=== PATIENT | male | born 1965 | race Hispanic/Latino ===

== ENCOUNTER 2020-07-09 23:24 | Observation (INO) | payer MEDICARE ==
[2020-07-09] MEDS ORDERED: SODIUM CHLORIDE 0.9% 1000 ML 1,000 ML IV ONE (23:49)
--- NOTE | 2020-07-09 23:50 | Emergency Department Report ---
ED General Adult HPI - General Chief complaint: GI Bleed Stated complaint: GI BLEED PUI?: No Time Seen by Provider: 07/09/20 23:48 Source: patient, EMS ( EMS documentation not available at time of chart dictation ), RN notes reviewed, old records reviewed Mode of arrival: Stretcher Limitations: Other (The patient is a poor historian) - History of Present Illness Initial comments: The patient was evaluated in the emergency department for symptoms described in the history of present illness. He/she was evaluated in the context of the global COVID-19 pandemic, which necessitated consideration that the patient might be at risk for infection with the virus that causes COVID-19. Institutional protocols and algorithms that pertain to the evaluation of patients at risk for COVID-19 are in a state of rapid change based on inf ormation released by regulatory bodies including the CDC and federal and state organizations. These policies and algorithms were followed during the patient's care in the emergency department. Please note that these policies, procedures and recommendations changed on a rapid basis. Patient is a 55-year-old gentleman. The patient does not know who his primary care doctor is the patient does not know who his sisal picker is. He has a history of hypertension and heart disease. He does not know if he takes systemic anticoagulation. He believes he takes aspirin. He is not sure when he last took aspirin. He is not sure if he takes Plavix. He does not have anyone who can give him the name of his medications. He does not recall what pharmacy he gets his medications from. He presents to the ER with a complaint of nontraumatic dark red/bright red blood per rectum x1 day. He reports 7 bloody bowel movements. He also endorses epigastric abdominal pain nonradiating for 1 week. He denies headache, neck pain, chest pain, shortness of breath, hematemesis, urinary symptoms, homicidality, suicidality, extremity weakness/numbness. He is amenable to packed red blood cell transfusion if he requires it. He is not sure if he is had a colonoscopy in the past. He is not accompanied by family, friends at this time who can provide additional information or collateral information. -: Sudden, hour(s), days(s) Location: abdomen Consistency: constant Improves with: other Worsens with: other - Related Data Home Medications Medication Instructions Recorded Confirmed Last Taken buPROPion [Wellbutrin] 150 mg PO BID 09/11/13 09/06/16 11/16/13 lamoTRIgine [LaMICtal] 500 mg PO BID 09/11/13 09/06/16 11/16/13 ALPRAZolam [Alprazolam] 2 mg PO PRN PRN 11/17/13 09/06/16 11/16/13 Aspirin 81 mg PO QDAY 11/17/13 09/06/16 11/16/13 Lisinopril 10 mg PO QDAY 11/17/13 09/06/16 11/17/13 05:00 Meloxicam 7.5 mg PO QDAY 11/17/13 09/06/16 11/17/13 05:00 Metoprolol [Lopressor TAB] 50 mg PO BID 11/17/13 09/06/16 11/17/13 05:00 Nitroglycerin [Nitrostat] 0.4 mg SL Q5M PRN 11/17/13 09/06/16 Unknown Previous Rx's Medication Instructions Recorded Last Taken Type Ibuprofen [Motrin 800 MG tab] 800 mg PO TID PRN #30 tablet 09/11/13 11/16/13 Rx Oxycodone HCl [OxyCONTIN] 10 mg PO BID PRN #20 tab.er.12h 09/11/13 11/15/13 Rx Allergies Allergy/AdvReac Type Severity Reaction Status Date / Time acetaminophen [From Tylenol] Allergy Swelling Verified 10/18/13 11:08 Latex, Natural Rubber Allergy Hives Verified 09/06/16 18:51 Sulfa (Sulfonamide Allergy Swelling Verified 10/18/13 11:08 Antibiotics) ED Review of Systems ROS: Stated complaint: GI BLEED Other details as noted in HPI Constitutional: malaise. denies: fever Eyes: denies: eye discharge ENT: denies: epistaxis Respiratory: denies: cough Cardiovascular: denies: chest pain Gastrointestinal: abdominal pain, hematochezia Genitourinary: denies: dysuria Musculoskeletal: as per HPI Skin: as per HPI Neurological: as per HPI Psychiatric: as per HPI Hematological/Lymphatic: as per HPI ED Past Medical Hx - Past Medical History Previous Medical History?: Yes Hx Hypertension: Yes Hx Heart Attack/AMI: Yes Hx Diabetes: Yes (diet controlled) Hx Liver Disease: Yes Hx Arthritis: Yes Hx Kidney Stones: Yes Hx Psychiatric Treatment: Yes Hx Asthma: Yes Additional medical history: He says he had an appointment with the cancer doctor but did not go for evaluation of whether he had liver cancer. - Surgical History Past Surgical History?: Yes Additional Surgical History: back surgery and hand surgery to clean staph out - Social History Smoking Status: Current Every Day Smoker Substance Use Type: None - Medications Home Medications: Home Medications Medication Instructions Recorded Confirmed Last Taken Type Ibuprofen [Motrin 800 MG tab] 800 mg PO TID PRN #30 tablet 09/11/13 09/06/16 11/16/13 Rx Oxycodone HCl [OxyCONTIN] 10 mg PO BID PRN #20 tab.er.12h 09/11/13 09/06/16 11/15/13 Rx buPROPion [Wellbutrin] 150 mg PO BID 09/11/13 09/06/16 11/16/13 History lamoTRIgine [LaMICtal] 500 mg PO BID 09/11/13 09/06/16 11/16/13 History ALPRAZolam [Alprazolam] 2 mg PO PRN PRN 11/17/13 09/06/16 11/16/13 History Aspirin 81 mg PO QDAY 11/17/13 09/06/16 11/16/13 History Lisinopril 10 mg PO QDAY 11/17/13 09/06/16 11/17/13 05:00 History Meloxicam 7.5 mg PO QDAY 11/17/13 09/06/16 11/17/13 05:00 History Metoprolol [Lopressor TAB] 50 mg PO BID 11/17/13 09/06/16 11/17/13 05:00 History Nitroglycerin [Nitrostat] 0.4 mg SL Q5M PRN 11/17/13 09/06/16 Unknown History ED Physical Exam - General Limitations: No Limitations General appearance: alert, anxious - Head Head exam: Present: atraumatic, normocephalic - Eye Eye exam: Present: normal appearance, EOMI, other (Bilateral conjunctiva are pale). Absent: nystagmus - ENT ENT exam: Present: normal exam, normal orophraynx, mucous membranes moist, normal external ear exam - Neck Neck exam: Present: normal inspection, full ROM. Absent: tenderness, meningismus - Respiratory Respiratory exam: Present: normal lung sounds bilaterally. Absent: respiratory distress, wheezes, rales, rhonchi, stridor, decreased breath sounds - Cardiovascular Cardiovascular Exam: Present: regular rate, normal rhythm, normal heart sounds. Absent: bradycardia, tachycardia, irregular rhythm, systolic murmur, diastolic murmur, rubs, gallop - GI/Abdominal GI/Abdominal exam: Present: soft, tenderness (There is epigastric tenderness). Absent: distended, guarding, rebound, rigid, pulsatile mass - Rectal Rectal exam: Present: normal inspection, bloody stool, other (Gross blood on rectal exam. Chaperoned by Career Advisor Eunice) - Extremities Exam Extremities exam: Present: normal inspection, full ROM, other (2+ pulses noted in the bilateral upper and lower extremities. There is no palpable cord. negative Homans sign. Muscular compartments are soft. The pelvis is stable.). Absent: pedal edema, calf tenderness - Back Exam Back exam: Present: normal inspection, full ROM. Absent: tenderness, CVA tenderness (R), CVA tenderness (L), paraspinal tenderness, vertebral tenderness - Neurological Exam Neurological exam: Present: alert, other (No facial droop. Tongue midline. Extraocular movements intact bilaterally. Facial sensation intact to light touch in V1, V2, V3 distribution bilaterally. 5 and a 5 strength in 4 extremities. Sensation intact to light touch in 4 extremities.) - Psychiatric Psychiatric exam: Present: anxious - Skin Skin exam: Present: warm, dry, intact, normal color. Absent: rash ED Course Vital Signs 07/09/20 07/10/20 07/10/20 23:50 00:00 00:30 Temperature 97.6 F Pulse Rate 94 H 98 H Respiratory 14 11 L 13 Rate Blood Pressure 109/86 108/81 Blood Pressure 95/74 [Left] O2 Sat by Pulse 98 100 100 Oximetry 07/10/20 07/10/20 00:45 00:56 Temperature Pulse Rate 82 Respiratory 12 18 Rate Blood Pressure 125/79 Blood Pressure [Left] O2 Sat by Pulse 100 Oximetry - Reevaluation(s) Reevaluation #1: 07/10/20 00:15 Differential diagnosis, including but not limited to: Diverticular bleed, angiodysplasia, upper GI bleed Assessment and plan: 55-year-old gentleman, who endorses bright red blood per rectum and mild abdominal tenderness. Blood pressure in the high 90s/low 100s. Establish to large-bore IV access, start IV fluids wide open, obtain appropriate laboratory studies, EKG, place patient on patient monitor, obtain CT angiogram of the abdomen pelvis, and reassess. We will discuss with gastroenterology once his initial data points have resulted. We have discussed this plan of care with the patient, who verbalized understanding, and who is amenable to this plan of care. Patient states he is amenable to packed red blood cell transfusion. Reevaluation #2: 07/10/20 03:00 Blood pressure improved. Patient still having mild abdominal pain. CT angiogram negative for active bleed. Duodenitis is suggested. He is asking for additional pain medication, but otherwise appears comfortable. Patient will be admitted to the medical service. Reevaluation #3: 07/10/20 03:06 Dr Davon Xiao to admit - Consultations Consultation #1: 07/10/20 00:32 Discussed history, physical, and plan of care with gastroenterology on-call, Dr. Farzaneh Morley, who is in agreement with plan, indicates his group can follow in consultation ED Medical Decision Making - Lab Data Result diagrams: 07/09/20 23:48 07/10/20 Unknown Lab Results 07/09/20 Range/Units 23:48 WBC 12.6 H (4.5-11.0) K/mm3 RBC 4.36 (3.65-5.03) M/mm3 Hgb 12.9 (11.8-15.2) gm/dl Hct 39.1 (35.5-45.6) % MCV 90 (84-94) fl MCH 30 (28-32) pg MCHC 33 (32-34) % RDW 14.1 (13.2-15.2) % Plt Count 262 (140-440) K/mm3 Lymph % (Auto) 26.8 (13.4-35.0) % Waller % (Auto) 5.8 (0.0-7.3) % Eos % (Auto) 3.4 (0.0-4.3) % Baso % (Auto) 0.5 (0.0-1.8) % Lymph # (Auto) 3.4 (1.2-5.4) K/mm3 Waller # (Auto) 0.7 (0.0-0.8) K/mm3 Eos # (Auto) 0.4 (0.0-0.4) K/mm3 Baso # (Auto) 0.1 (0.0-0.1) K/mm3 Seg Neutrophils % 63.5 (40.0-70.0) % Seg Neutrophils # 8.0 H (1.8-7.7) K/mm3 Vital Signs 07/09/20 07/10/20 07/10/20 23:50 00:00 00:30 Temperature 97.6 F Pulse Rate 94 H 98 H Respiratory 14 11 L 13 Rate Blood Pressure 109/86 108/81 Blood Pressure 95/74 [Left] O2 Sat by Pulse 98 100 100 Oximetry 07/10/20 07/10/20 00:45 00:56 Temperature Pulse Rate 82 Respiratory 12 18 Rate Blood Pressure 125/79 Blood Pressure [Left] O2 Sat by Pulse 100 Oximetry Lab Results 07/09/20 07/09/20 Range/Units 23:48 23:58 WBC 12.6 H (4.5-11.0) K/mm3 RBC 4.36 (3.65-5.03) M/mm3 Hgb 12.9 (11.8-15.2) gm/dl Hct 39.1 (35.5-45.6) % MCV 90 (84-94) fl MCH 30 (28-32) pg MCHC 33 (32-34) % RDW 14.1 (13.2-15.2) % Plt Count 262 (140-440) K/mm3 Lymph % (Auto) 26.8 (13.4-35.0) % Waller % (Auto) 5.8 (0.0-7.3) % Eos % (Auto) 3.4 (0.0-4.3) % Baso % (Auto) 0.5 (0.0-1.8) % Lymph # (Auto) 3.4 (1.2-5.4) K/mm3 Waller # (Auto) 0.7 (0.0-0.8) K/mm3 Eos # (Auto) 0.4 (0.0-0.4) K/mm3 Baso # (Auto) 0.1 (0.0-0.1) K/mm3 Seg Neutrophils % 63.5 (40.0-70.0) % Seg Neutrophils # 8.0 H (1.8-7.7) K/mm3 PT 13.5 (12.2-14.9) Sec. INR 1.02 (0.87-1.13) APTT 26.8 (24.2-36.6) Sec. - EKG Data -: EKG Interpreted by Me EKG shows normal: sinus rhythm, axis, intervals, QRS complexes, ST-T waves - EKG Data Interpretation: normal EKG - Radiology Data Radiology results: pending, report reviewed, image reviewed CTA ABDOMEN AND PELVIS WITHOUT AND WITH IV CONTRAST INDICATION / CLINICAL INFORMATION: Pt complains of epigastric abd pain, question possible GI bleed. TECHNIQUE: Axial CT images were obtained through the abdomen and pelvis before and after after injection of 100 mL Omnipaque 350 IV contrast. 3 plane MIP / 3D reconstructions were produced. All CT scans at this location are performed using CT dose reduction for ALARA by means of automated exposure control. Any percent stenosis measurements are based on criteria similar to NASCET. COMPARISON: None available. FINDINGS: Aorta: There is mild atherosclerotic plaque without stenosis or aneurysm. Renal arteries: No significant abnormality. Celiac artery: No significant abnormality. Superior Mesenteric Artery: No significant abnormality. Inferior mesenteric artery: No significant abnormality. Right I liac Arteries: No significant abnormality.. Left Iliac Arteries: No significant abnormality.. Additional Findings: There is fat stranding adjacent to the first and second parts of the duodenum likely reflecting duodenitis. There is no obstruction, pneumatosis, or free air. There are multiple gallstones in the gallbladder. There are multiple simple bilateral renal cysts. Skeletal Structures: No aggressive appearing bone lesions. Moderate degenerative disc disease at L4-5 and L5-S1 in the lumbar spine. IMPRESSION: 1. Inflammatory change adjacent to the first and second parts of the duodenum likely indicating duodenitis. No obstruction or free air. 2. No evidence of GI bleeding. No focal significant vascular abnormality beyond mild atherosclerotic plaque. Signer Name: Rafi Chisholm MD Signed: 07/10/2020 1:15 AM Workstation Name: [id number] Critical care attestation.: If time is entered above; I have spent that time in minutes in the direct care of this critically ill patient, excluding procedure time. ED Disposition Clinical Impression: Epigastric abdominal pain GI bleed Qualifiers: GI bleed type/associated pathology: unspecified gastrointestinal hemorrhage typ e Qualified Code(s): K92.2 - Gastrointestinal hemorrhage, unspecified Disposition: DC-09 OP ADMIT IP TO THIS HOSP Is pt being admited?: Yes Does the pt Need Aspirin: No Condition: Serious Referrals: JOSÉ BERKOWITZ MD [Primary Care Provider] - 3-5 Days Forms: Accompanied Note
[2020-07-10] MEDS ORDERED: fentaNYL 100 MCG/2 ML INJ IV ONE (00:10)
[2020-07-10] MEDS ORDERED: SODIUM CHLORIDE 0.9% 1000 ML 1,000 ML IV ONE (00:15)
[2020-07-10 00:38] LABS: Basophils # (Auto) 0.1 K/mm3 (0.0-0.1); Basophils % (Auto) 0.5 % (0.0-1.8); Eosinophils # (Auto) 0.4 K/mm3 (0.0-0.4); Eosinophils % (Auto) 3.4 % (0.0-4.3); Hematocrit 39.1 % (35.5-45.6); Hemoglobin 12.9 gm/dl (11.8-15.2); Lymphocytes # (Auto) 3.4 K/mm3 (1.2-5.4); Lymphocytes % (Auto) 26.8 % (13.4-35.0); Mean Corpuscular HGB Conc 33 % (32-34); Mean Corpuscular Volume 90 fl (84-94); Monocytes # (Auto) 0.7 K/mm3 (0.0-0.8); Monocytes % (Auto) 5.8 % (0.0-7.3); Platelet Count 262 K/mm3 (140-440); Red Blood Count 4.36 M/mm3 (3.65-5.03); Red Cell Distribution Width 14.1 % (13.2-15.2)
[2020-07-10 00:45] LABS: INR 1.02 (0.87-1.13)
[2020-07-10 00:46] LABS: Partial Thromboplastin Time 26.8 Sec. (24.2-36.6)
[2020-07-10 00:58] LABS: Alanine Aminotransferase 14 units/L (7-56); Albumin 3.4 g/dL (3.9-5); BUN/Creatinine Ratio 23; Blood Urea Nitrogen 30 mg/dL (9-20); Calcium 8.7 mg/dL (8.4-10.2); Hemolysis Index 2
--- NOTE | 2020-07-10 02:20 | Cat Scan Report ---
CTA ABDOMEN AND PELVIS WITHOUT AND WITH IV CONTRAST INDICATION / CLINICAL INFORMATION: Pt complains of epigastric abd pain, question possible GI bleed. TECHNIQUE: Axial CT images were obtained through the abdomen and pelvis before and after after injection of 100 mL Omnipaque 350 IV contrast. 3 plane MIP / 3D reconstructions were produced. All CT scans at this [facility] are performed using CT dose reduction for ALARA by means of automated exposure control. Any pe rcent stenosis measurements are based on criteria similar to NASCET. COMPARISON: None available. FINDINGS: Aorta: There is mild atherosclerotic plaque without stenosis or aneurysm. Renal arteries: No significant abnormality. Celiac artery: No significant abnormality. Superior Mesenteric Artery: No significant abnormality. Inferior mesenteric artery: No significant abnormality. Right Iliac Arteries: No significant abnormality.. Left Iliac Arteries: No significant abnormality.. Additional Findings: There is fat stranding adjacent to the first and second parts of the duodenum li víctor reflecting duodenitis. There is no obstruction, pneumatosis, or free air. There are multiple gal lstones in the gallbladder. There are multiple simple bilateral renal cysts. Skeletal Structures: No aggressive appearing bone lesions. Moderate degenerative disc disease at L4-5 and L5-S1 in the lumbar spine. IMPRESSION: 1. Inflammatory change adjacent to the first and second parts of the duodenum likely indicating duode nitis. No obstruction or free air. 2. No evidence of GI bleeding. No focal significant vascular abnormality beyond mild atherosclerotic plaque. Signer Name: Rafi Chisholm MD Signed: 07/10/2020 2:15 AM Workstation Name: [id number]
[2020-07-10] MEDS ORDERED: PANTOPRAZOLE 40 MG INJ IV ONE (03:05)
[2020-07-10] MEDS ORDERED: SODIUM CHLORIDE 0.9% 1000 ML 1,000 ML IV SCH (03:30)
[2020-07-10] MEDS ORDERED: MORPHINE 2 MG/1 ML INJ IV PRN (03:30)
[2020-07-10] MEDS ORDERED: ONDANSETRON 4 MG/2 ML INJ IV PRN (03:30)
[2020-07-10] MEDS ORDERED: DEXTROSE 50% IN WATER (25GM) 50 ML SYRINGE IV PRN (03:30)
--- NOTE | 2020-07-10 03:40 | History and Physical Report ---
History of Present Illness Date of examination: 07/10/20 Date of admission: 07/10/2020 Chief complaint: Abdominal Pain History of present illness: 55-year-old male with known history of hypertension, diabetes mellitus, history of liver disease and coronary artery disease presenting to the emergency room today complaining of dark red blood per rectum for 1 day. He has had multiple bowel movements today and indicates that he has been seen blood in his stool. He admits she has been having upper abdominal pain for about 1 week but started having bloody stool today. Abdominal pain is said to be more in the epigastric region. There is no no relieving or exacerbating factors. He denies taking any nonsteroidal anti-inflammatory medication. Review of patient's medications however reveals that he has been on aspirin, meloxicam, ibuprofen. Patient denies any fever or chills, no chest pain or shortness of breath, no nausea vomiting, no headache or dizziness. He has had a total of about 7 bowel movements today. Work-up in the emergency room today reveals a hemoglobin and hematocrit of 13 and 39 respectively. Patient is being admitted for GI bleed. Past History Past Medical History: diabetes (Diet controlled), hypertension, other (Asthma,Liver disease,Kidney stones) Past Surgical History: Other (Back surgery,hand surgery) Social history: smoking (Current daily smoker) Family history: no significant family history Medications and Allergies Allergies Allergy/AdvReac Type Severity Reaction Status Date / Time acetaminophen [From Tylenol] Allergy Swelling Verified 10/18/13 11:08 Latex, Natural Rubber Allergy Hives Verified 09/06/16 18:51 Sulfa (Sulfonamide Allergy Swelling Verified 10/18/13 11:08 Antibiotics) Home Medications Medication Instructions Recorded Confirmed Last Taken Type Ibuprofen [Motrin 800 MG tab] 800 mg PO TID PRN #30 tablet 09/11/13 09/06/16 11/16/13 Rx Oxycodone HCl [OxyCONTIN] 10 mg PO BID PRN #20 tab.er.12h 09/11/13 09/06/16 11/15/13 Rx buPROPion [Wellbutrin] 150 mg PO BID 09/11/13 09/06/16 11/16/13 History lamoTRIgine [LaMICtal] 500 mg PO BID 09/11/13 09/06/16 11/16/13 History ALPRAZolam [Alprazolam] 2 mg PO PRN PRN 11/17/13 09/06/16 11/16/13 History Aspirin 81 mg PO QDAY 11/17/13 09/06/16 11/16/13 History Lisinopril 10 mg PO QDAY 11/17/13 09/06/16 11/17/13 05:00 History Meloxicam 7.5 mg PO QDAY 11/17/13 09/06/16 11/17/13 05:00 History Metoprolol [Lopressor TAB] 50 mg PO BID 11/17/13 09/06/16 11/17/13 05:00 History Nitroglycerin [Nitrostat] 0.4 mg SL Q5M PRN 11/17/13 09/06/16 Unknown History Review of Systems Constitutional: no fever, no chills Ears, nose, mouth and throat: no nasal congestion, no sore throat Cardiovascular: no chest pain, no palpitations Respiratory: no cough, no shortness of breath Gastrointestinal: abdominal pain, BRBPR, no nausea, no vomiting, no diarrhea Genitourinary Male: no dysuria, no hematuria, no flank pain Musculoskeletal: no neck pain, no low back pain Integumentary: no rash, no pruritis Neurological: no headaches, no confusion Psychiatric: no anxiety, no depression Exam - Constitutional Vitals: Temp Pulse Resp BP Pulse Ox 97.6 F 80 14 124/84 100 07/09/20 23:50 07/10/20 02:15 07/10/20 02:15 07/10/20 03:12 07/10/20 03:12 General appearance: Present: no acute distress, well-nourished - EENT Eyes: Present: PERRL, EOM intact, scleral icterus ENT: hearing intact, clear oral mucosa, dentition normal - Neck Neck: Present: supple, normal ROM - Respiratory Respiratory effort: normal Respiratory: bilateral: CTA - Cardiovascular Rhythm: regular Heart Sounds: Present: S1 & S2. Absent: gallop, systolic murmur, diastolic m urmur, rub - Extremities Extremities: no ischemia, pulses intact, pulses symmetrical, No edema, Full ROM Peripheral Pulses: within normal limits - Abdominal General gastrointestinal: Present: soft, tender (Epigastric ), non-distended, normal bowel sounds. Absent: mass - Integumentary Integumentary: Present: clear, warm, dry - Musculoskeletal Musculoskeletal: strength equal bilaterally - Psychiatric Psychiatric: appropriate mood/affect, intact judgment & insight, memory intact, cooperative - Neurologic Neurologic: CNII-XII intact, no focal deficits, moves all extremities Results - Labs CBC & Chem 7: 07/09/20 23:48 07/10/20 Unknown Labs: Abnormal lab results 07/09/20 07/09/20 07/09/20 Range/Units 23:48 23:58 23:58 WBC 12.6 H (4.5-11.0) K/mm3 Seg Neutrophils # 8.0 H (1.8-7.7) K/mm3 BUN (9-20) mg/dL Glucose (75-100) mg/dL Albumin (3.9-5) g/dL Salicylates < 0.3 L (2.8-20.0) mg/dL Acetaminophen 5.0 L (10.0-30.0) ug/mL 07/10/20 Range/Units Unknown WBC (4.5-11.0) K/mm3 Seg Neutrophils # (1.8-7.7) K/mm3 BUN 30 H (9-20) mg/dL Glucose 168 H (75-100) mg/dL Albumin 3.4 L (3.9-5) g/dL Salicylates (2.8-20.0) mg/dL Acetaminophen (10.0-30.0) ug/mL Assessment and Plan - Patient Problems (1) GI bleed Current Visit: Yes Status: Acute Qualifiers: GI bleed type/associated pathology: unspecified gastrointestinal hemorrhage type Qualified Code(s): K92.2 - Gastrointestinal hemorrhage, unspecified Plan to address problem: Patient made n.p.o. etiology of his GI bleed unknown. Consult has been placed to gastroenterology for evaluation and recommendation. (2) Epigastric abdominal pain Current Visit: Yes Status: Acute Plan to address problem: Patient will be placed on IV and adjust medication as needed. (3) DVT prophylaxis Current Visit: Yes Status: Acute Plan to address problem: Patient placed on sequential compression device. (4) Full code status Current Visit: Yes Status: Acute
[2020-07-10] MEDS: PANTOPRAZOLE 40 MG INJ IV SCH ×2 (10:43→21:11)
[2020-07-10 14:07] LABS: Basophils % (Auto) 0.4 % (0.0-1.8); Eosinophils # (Auto) 0.2 K/mm3 (0.0-0.4); Eosinophils % (Auto) 2.6 % (0.0-4.3); Hemoglobin 10.5 gm/dl (11.8-15.2); Lymphocytes # (Auto) 2.9 K/mm3 (1.2-5.4); Lymphocytes % (Auto) 30.9 % (13.4-35.0); Mean Corpuscular HGB Conc 33 % (32-34); Mean Corpuscular Volume 89 fl (84-94); Monocytes # (Auto) 0.6 K/mm3 (0.0-0.8); Monocytes % (Auto) 6.3 % (0.0-7.3); Platelet Count 240 K/mm3 (140-440); Red Blood Count 3.58 M/mm3 (3.65-5.03); Red Cell Distribution Width 14.2 % (13.2-15.2)
--- NOTE | 2020-07-10 14:08 | Consultation ---
History of Present Illness - Reason for Consult Consult date: 07/10/20 GI bleed Requesting physician: SYDNEY NIEVES - History of Present Illness Mr. Hopkins is a 55-year-old man who is on disability due to heart disease. He states he was having epigastric pain with cramping intermittently along with nausea occurring 2 or 3 times a day for the last week. These episodes would last several minutes. On the day of admission, he had 7 bouts of hematochezia and towards the end of it, he felt diaphoretic and dizzy. He noted that there was bright red blood along with brown stool each time. There was no nausea or vomiting. He states he takes aspirin but was not aware of his other medications. Of note, he is seen by cardiology and has stents in place. He states that he was due to get another stent but has been avoiding seeing his physician, Dr. Alamo, because of COVID. No prior similar symptoms. No history of peptic ulcer disease. He denies prior colonoscopy. Bowel movements usually occur every 2 or 3 days. He has had no further bleeding since coming to the hospital. Meds reviewed. Past History Past Medical History: CAD (with stents), diabetes (Diet controlled), hypertension, other (Asthma,Liver disease,Kidney stones) Past Surgical History: Other (Back surgery,hand surgery) Social history: smoking (Current daily smoker, 1 ppd). denies: alcohol abuse Family history: no significant family history Medications and Allergies Allergies Allergy/AdvReac Type Severity Reaction Status Date / Time acetaminophen [From Tylenol] Allergy Swelling Verified 10/18/13 11:08 Latex, Natural Rubber Allergy Hives Verified 09/06/16 18:51 Sulfa (Sulfonamide Allergy Swelling Verified 10/18/13 11:08 Antibiotics) Home Medications Medication Instructions Recorded Confirmed Last Taken Type RX: Ibuprofen [Motrin 800 MG tab] 800 mg PO TID PRN #30 tablet 09/11/13 09/06/16 11/16/13 Rx RX: Oxycodone HCl [OxyCONTIN] 10 mg PO BID PRN #20 tab.er.12h 09/11/13 09/06/16 11/15/13 Rx RX: buPROPion [Wellbutrin] 150 mg PO BID 09/11/13 09/06/16 11/16/13 History RX: lamoTRIgine [LaMICtal] 500 mg PO BID 09/11/13 09/06/16 11/16/13 History RX: ALPRAZolam [Alprazolam] 2 mg PO PRN PRN 11/17/13 09/06/16 11/16/13 History RX: Aspirin 81 mg PO QDAY 11/17/13 09/06/16 11/16/13 History RX: Lisinopril 10 mg PO QDAY 11/17/13 09/06/16 11/17/13 05:00 History RX: Meloxicam 7.5 mg PO QDAY 11/17/13 09/06/16 11/17/13 05:00 History RX: Metoprolol [Lopressor TAB] 50 mg PO BID 11/17/13 09/06/16 11/17/13 05:00 History RX: Nitroglycerin [Nitrostat] 0.4 mg SL Q5M PRN 11/17/13 09/06/16 Unknown History Active Meds: Active Medications Dextrose (D50w (25gm) Syringe) 50 ml IV Q30MIN PRN; Protocol PRN Reason: Hypoglycemia Sodium Chloride (Nacl 0.9% 1000 Ml) 1,000 mls @ 125 mls/hr IV [facility] Morphine Sulfate (Morphine) 2 mg IV Q4H PRN PRN Reason: Pain, Moderate (4-6) Ondansetron HCl (Zofran) 4 mg IV Q8H PRN PRN Reason: Nausea And Vomiting Pantoprazole Sodium (Protonix) 40 mg IV BID [facility] Last Admin: 07/10/20 10:43 Dose: 40 mg Documented by: Sodium Chloride (Sodium Chloride Flush Syringe 10 Ml) 10 ml IV BID [facility] Last Admin: 07/10/20 10:44 Dose: 10 ml Documented by: Sodium Chloride (Sodium Chloride Flush Syringe 10 Ml) 10 ml IV PRN PRN PRN Reason: LINE FLUSH Review of Systems All systems: negative (as noted) Exam - Constitutional Vitals: Temp Pulse Resp BP Pulse Ox 98.5 F 79 17 121/78 98 07/10/20 12:00 07/10/20 12:00 07/10/20 12:00 07/10/20 04:15 07/10/20 12:00 General appearance: Present: no acute distress - EENT Eyes: Present: PERRL, EOM intact ENT: hearing intact - Respiratory Respiratory effort: normal Respiratory: bilateral: CTA - Cardiovascular Rhythm: regular Heart Sounds: Present: S1 & S2 - Extremities Extremities: No edema - Abdominal General gastrointestinal: Present: soft, non-tender - Rectal Rectal Exam: other (No masses, dark reddish stool) Results - Labs CBC & Chem 7: 07/09/20 23:48 07/10/20 Unknown Labs: Abnormal lab results 07/09/20 07/09/20 07/09/20 Range/Units 23:48 23:58 23:58 WBC 12.6 H (4.5-11.0) K/mm3 Seg Neutrophils # 8.0 H (1.8-7.7) K/mm3 BUN (9-20) mg/dL Glucose (75-100) mg/dL POC Glucose (70-105) Albumin (3.9-5) g/dL Salicylates < 0.3 L (2.8-20.0) mg/dL Acetaminophen 5.0 L (10.0-30.0) ug/mL 07/10/20 07/10/20 Range/Units 11:53 Unknown WBC (4.5-11.0) K/mm3 Seg Neutrophils # (1.8-7.7) K/mm3 BUN 30 H (9-20) mg/dL Glucose 168 H (75-100) mg/dL POC Glucose 119 H (70-105) Albumin 3.4 L (3.9-5) g/dL Salicylates (2.8-20.0) mg/dL Acetaminophen (10.0-30.0) ug/mL Assessment and Plan 1. Hematochezia -likely distal lower GI bleeding given description with brown stool mixed in. Also, his hemoglobin is relatively normal. Patient does warran t a colonoscopy, but would like cardiac evaluation given his history of needing a stent. -Monitor H&H and transfuse as needed -Empiric daily PPI -Cardiac consult -Subsequently, decide regarding inpatient versus outpatient colonoscopy.
[2020-07-11 04:55] VITALS: BP 149/80
--- NOTE | 2020-07-11 07:14 | Event Note ---
Date: 07/10/20 Patient seen and reevaluated Patient admitted for lower GI bleed Cardiology consult requested Possible colonoscopy tomorrow after cardiac clearance
== END 2020-07-11 07:24 | disposition left against medical advice (07) ==
LOC: ED 23:24 → IMCU 07-10 03:05 → 4A 07-10 18:15
PROVIDERS: ADMIT Internal Medicine Geriatric Medicine; ATTEND Internal Medicine
DX: K92.2 Gastrointestinal hemorrhage, unspecified (principal); R42 Dizziness and giddiness; K92.1 Melena; R10.13 Epigastric pain; I11.9 Hypertensive heart disease without heart failure; E11.9 Type 2 diabetes mellitus without complications; I25.10 Atherosclerotic heart disease of native coronary artery without angina pectoris; J45.909 Unspecified asthma, uncomplicated; I25.2 Old myocardial infarction; M19.90 Unspecified osteoarthritis, unspecified site; F17.200 Nicotine dependence, unspecified, uncomplicated; Z79.82 Long term (current) use of aspirin; Z79.899 Other long term (current) drug therapy; Z88.2 Allergy status to sulfonamides; Z91.040 Latex allergy status; Z88.8 Allergy status to other drugs, medicaments and biological substances
CPT/HCPCS: 36415; 74174; 80053; 82550; 82962; 83690; 83735; 85025; 85610; 85730; 86850; 86900; 86901; 93005; 96361; 96374; 96375; 96376; 99285; C9113; G0378; J3010; J7030; Q9967; 80320; G0480

== ENCOUNTER 2021-11-16 10:00 | Emergency (ER) | payer MEDICARE ==
[2021-11-16] MEDS ORDERED: COLCHICINE 0.6 MG TAB PO ONE ×2 (10:09→13:53)
[2021-11-16] MEDS ORDERED: ONDANSETRON 4 MG/2 ML INJ IV ONE (10:09)
[2021-11-16] MEDS ORDERED: HYDROmorphone 1 MG/1 ML INJ IV ONE ×3 (10:09→14:25)
[2021-11-16] MEDS ORDERED: dexAMETHasone 20 MG/5 ML VIAL IV ONE (10:11)
--- NOTE | 2021-11-16 10:15 | Emergency Department Report ---
ED Extremity Problem HPI - General Chief complaint: Extremity Injury, Lower Stated complaint: gout Time Seen by Provider: 11/16/21 10:09 Source: EMS Mode of arrival: Stretcher Limitations: No Limitations - History of Present Illness Initial comments: 56-year-old male with a past medical history gout and hypertension presents to the hospital complaining of left ankle pain secondary to gout for several days it became severe this morning. Patient complains of 10/10 pain pain that is constant, worse with movement and palpation. Patient is unable to ambulate secondary to pain. Denies recent trauma. Similar pain the past clear to gout. Patient typically takes colchicine for gout flare but currently does not have any. He also did not take his blood pressure medication this morning because he could not ambulate. Patient states he cannot take NSAIDs because he is currently on Eliquis for his heart. He states acetaminophen causes him to break out in a rash Severity scale (0 -10): 3 - Related Data Home Medications Medication Instructions Recorded Confirmed Last Taken buPROPion [Wellbutrin] 150 mg PO BID 09/11/13 09/06/16 11/16/13 lamoTRIgine [LaMICtal] 500 mg PO BID 09/11/13 09/06/16 11/16/13 ALPRAZolam [Alprazolam] 2 mg PO PRN PRN 11/17/13 09/06/16 11/16/13 Aspirin 81 mg PO QDAY 11/17/13 09/06/16 11/16/13 Lisinopril 10 mg PO QDAY 11/17/13 09/06/16 11/17/13 05:00 Meloxicam 7.5 mg PO QDAY 11/17/13 09/06/16 11/17/13 05:00 Metoprolol [Lopressor TAB] 50 mg PO BID 11/17/13 09/06/16 11/17/13 05:00 Nitroglycerin [Nitrostat] 0.4 mg SL Q5M PRN 11/17/13 09/06/16 Unknown Previous Rx's Medication Instructions Recorded Last Taken Type Ibuprofen [Motrin 800 MG tab] 800 mg PO TID PRN #30 tablet 09/11/13 11/16/13 Rx Oxycodone HCl [OxyCONTIN] 10 mg PO BID PRN #20 tab.er.12h 09/11/13 11/15/13 Rx Oxycodone HCl [oxyCODONE] 10 mg PO Q6H PRN #15 tab 11/16/21 Unknown Rx Prednisone [predniSONE 10 mg 10 mg PO .TAPER #1 11/16/21 Unknown Rx (6-Day Pack, 21 Tabs)] Allergies Allergy/AdvReac Type Severity Reaction Status Date / Time acetaminophen [From Tylenol] Allergy Swelling Verified 10/18/13 11:08 Latex, Natural Rubber Allergy Hives Verified 09/06/16 18:51 NSAIDS (Non-Steroidal Allergy Hives Verified 11/16/21 10:32 Anti-Inflamma Sulfa (Sulfonamide Allergy Swelling Verified 10/18/13 11:08 Antibiotics) ED Review of Systems ROS: Stated complaint: gout Other details as noted in HPI Comment: All other systems reviewed and negative ED Past Medical Hx - Past Medical History Hx Hypertension: Yes Hx Heart Attack/AMI: Yes Hx Congestive Heart Failure: Yes Hx Diabetes: Yes (diet controlled) Hx Liver Disease: Yes Hx Arthritis: Yes Hx Kidney Stones: Yes Hx Psychiatric Treatment: Yes Hx Asthma: Yes Hx COPD: No Additional medical history: He says he had an appointment with the cancer doctor but did not go for evaluation of whether he had liver cancer. - Surgical History Hx Coronary Stent: Yes Additional Surgical History: back surgery and hand surgery to clean staph out - Social History Smoking Status: Current Every Day Smoker - Medications Home Medications: Home Medications Medication Instructions Recorded Confirmed Last Taken Type Ibuprofen [Motrin 800 MG tab] 800 mg PO TID PRN #30 tablet 09/11/13 09/06/16 11/16/13 Rx Oxycodone HCl [OxyCONTIN] 10 mg PO BID PRN #20 tab.er.12h 09/11/13 09/06/16 11/15/13 Rx buPROPion [Wellbutrin] 150 mg PO BID 09/11/13 09/06/16 11/16/13 History lamoTRIgine [LaMICtal] 500 mg PO BID 09/11/13 09/06/16 11/16/13 History ALPRAZolam [Alprazolam] 2 mg PO PRN PRN 11/17/13 09/06/16 11/16/13 History Aspirin 81 mg PO QDAY 11/17/13 09/06/16 11/16/13 History Lisinopril 10 mg PO QDAY 11/17/13 09/06/16 11/17/13 05:00 History Meloxicam 7.5 mg PO QDAY 11/17/13 09/06/16 11/17/13 05:00 History Metoprolol [Lopressor TAB] 50 mg PO BID 11/17/13 09/06/16 11/17/13 05:00 History Nitroglycerin [Nitrostat] 0.4 mg SL Q5M PRN 11/17/13 09/06/16 Unknown History Oxycodone HCl [oxyCODONE] 10 mg PO Q6H PRN #15 tab 11/16/21 Unknown Rx Prednisone [predniSONE 10 mg 10 mg PO .TAPER #1 11/16/21 Unknown Rx (6-Day Pack, 21 Tabs)] ED Physical Exam - General Limitations: No Limitations - Other Other exam information: General: No acute distress Head: Atraumatic Eyes: normal appearance ENT: Moist mucous membranes Neck: Normal appearance, no midline tenderness Chest: Clear to auscultation bilaterally CV: Regular rate and rhythm Abdomen: Soft, normal bowel sounds, nontender, nondistended, no rebound or guarding Back: Normal inspection Extremity: Left ankle redness with mild warmth with diffuse tenderness to palpation. Limited movement secondary to pain Neuro: Alert O x 3, no facial asymmetry, speech clear, no gross motor sensory deficit Psych: Appropriate behavior Skin: No rash ED Course Vital Signs 11/16/21 11/16/21 11/16/21 10:06 12:09 13:12 Temperature 97.8 F 98.0 F Pulse Rate 89 90 Respiratory 16 18 15 Rate Blood Pressure 190/116 179/114 [Right] O2 Sat by Pulse 99 96 Oximetry 11/16/21 15:24 Temperature Pulse Rate 89 Respiratory 15 Rate Blood Pressure 170/105 [Right] O2 Sat by Pulse 100 Oximetry ED Medical Decision Making - Radiology Data Radiology results: report reviewed XR ankle 3+V LT INDICATION / CLINICAL INFORMATION: ankle pain. COMPARISON: None available. FINDINGS: No acute fracture. Normal alignment. Joint spaces are preserved. No destructive osseous lesion or suspicious periosteal reaction. Impression: 1.No acute fracture. - Medical Decision Making 56-year-old male presents to the hospital with significant left ankle pain secondary to gout. Similar symptoms in the past. Patient required multiple doses of IV and p.o. medicine for symptom relief. Patient also presents with hypertension which is likely due to a combination of pain and medication noncompliance this morning. X-ray unremarkable. Patient is afebrile. Patient will be treated with medications for pain control crutches Critical Care Time: No Critical care attestation.: If time is entered above; I have spent that time in minutes in the direct care of this critically ill patient, excluding procedure time. ED Disposition Clinical Impression: Chronic hypertension Gout of ankle Qualifiers: Laterality: left Disposition: HOME / SELF CARE / HOMELESS Is pt being admited?: No Does the pt Need Aspirin: No Condition: Stable Instructions: Hypertension (ED), Hypertension, Adult, [id number], Low-Purine Eating Plan Additional Instructions: Take the medication as prescribed. Follow-up with your doctor or doctor/clinic provided. Return if symptoms worsen as indicated by your discharge instructions. Prescriptions: Oxycodone HCl [oxyCODONE] 10 mg PO Q6H PRN #15 tab PRN Reason: Pain Prednisone [predniSONE 10 mg (6-Day Pack, 21 Tabs)] 10 mg PO .TAPER #1 Referrals: PRIMARY CARE, [Primary Care Provider] - 3-5 Days Time of Disposition: 16:03
[2021-11-16] MEDS ORDERED: KETOROLAC 30 MG/1 ML INJ IV ONE (10:26)
[2021-11-16] MEDS ORDERED: cloNIDine 0.1 MG TAB PO ONE (12:10)
--- NOTE | 2021-11-16 15:24 | XRay Report ---
XR ankle 3+V LT INDICATION / CLINICAL INFORMATION: ankle pain. COMPARISON: None available. FINDINGS: No acute fracture. Normal alignment. Joint spaces are preserved. No destructive osseous lesion or s uspicious periosteal reaction. Impression: 1.No acute fracture. Signer Name: Josue Mendoza MD Signed: 11/16/2021 3:20 PM Workstation Name: [id number]
[2021-11-16 16:59] VITALS: BP 190/119
== END 2021-11-16 16:59 | disposition home or self-care (01) ==
LOC: ED 10:00
DX: I10 Essential (primary) hypertension (principal); M10.9 Gout, unspecified; I11.0 Hypertensive heart disease with heart failure; I50.9 Heart failure, unspecified; E11.9 Type 2 diabetes mellitus without complications; J45.909 Unspecified asthma, uncomplicated; N20.0 Calculus of kidney; F17.200 Nicotine dependence, unspecified, uncomplicated; Z79.899 Other long term (current) drug therapy; Z98.890 Other specified postprocedural states; Z88.1 Allergy status to other antibiotic agents; Z91.014 Allergy to mammalian meats; Z88.2 Allergy status to sulfonamides; Z91.09 Other allergy status, other than to drugs and biological substances
CPT/HCPCS: 73610; 96374; 96375; 96376; 99284; J1100; J1170; J2405

== ENCOUNTER 2021-12-17 23:19 | Emergency (ER) | payer MEDICARE ==
[2021-12-17 23:42] VITALS: BP 188/121
--- NOTE | 2021-12-19 09:13 | Electrocardiograph Report ---
[facility] Test Date: 2021-12-17 Test Time: 23:27:24 Pat Name: VICTOR M HAYS Department: Room: Gender: M Section Maintainer: TECH : [id number] Requested By: SYDNEY NIEVES Order Number: [id number] Reading MD: Gabriel Alamo Measurements Intervals [place] Rate: 105 P: 83 CA: 138 QRS: 42 QRSD: 88 T: 78 QT: 358 QTc: 475 Interpretive Statements Sinus tachycardia Biatrial enlargement Probable left ventricular hypertrophy No previous ECG available for comparison Electronically Signed On 12-19-2021 9:13:18 EST by Gabriel Alamo
== END 2021-12-18 00:17 | disposition left against medical advice (07) ==
LOC: ED 23:19
DX: R07.9 Chest pain, unspecified (principal); Z53.21 Procedure and treatment not carried out due to patient leaving prior to being seen by health care provider
CPT/HCPCS: 93005